=== PATIENT | male | born 1980 | race Caucasian/White ===

== ENCOUNTER 2017-08-22 10:59 | Emergency (ER) | payer BC ==
[~2017-08-22] VITALS: Ht 175.3 cm; Wt 96.3 kg
[2017-08-22 11:34] LABS: HEMATOCRIT 44.4 % (38.0-50.0); MCH 28.2 PG (29.0-34.0); MCHC 33.8 G/DL (30.0-36.0); MCV 83.6 FL (86-99); MEAN PLAT.VOLUME 10.3 uM^3 (9.0-12.4); PLATELET COUNT 289 K/uL (156-360); RBC DIS.WIDTH-CV 12.4 % (11.8-14.6); RBC DIS.WIDTH-SD 37.7 % (39-53); RED BLOOD COUNT 5.31 M/uL (4.00-5.50); WHITE BLOOD COUNT 11.6 K/uL (4.1-10.2)
[2017-08-22 11:42] LABS: ADD MIUA? YES; BILIRUBIN NEGATIVE; BLOOD MODERATE; COLOR YELLOW ((YELLOW)); GLUCOSE (STRIP) NEGATIVE; KETONES 5; LEUKOCYTES NEGATIVE; NITRITE NEGATIVE; PROTEIN (STRIP) 30; SPECIFIC GRAVITY 1.024 (1.000-1.030)
[2017-08-22 11:43] LABS: CHLORIDE 107 mEq/L (99-109); SODIUM 140 mEq/L (136-147)
[2017-08-22 11:45] LABS: GLUCOSE 123 mg/dL (70-99)
[2017-08-22 11:46] LABS: ANION GAP 12 MEQ/L (2-14)
[2017-08-22 11:49] LABS: UREA NITROGEN (BUN) 12 mg/dL (9-23)
[2017-08-22 11:51] LABS: GFR ESTIMATE (CALCULATED) > 59 mL/min/
[2017-08-22 11:57] LABS: BACTERIA NONE SEEN /HPF; EPITHELIAL CELLS NONE SEEN /HPF; MUCUS 1+ /LPF; RED BLOOD CELLS 30-40 /HPF (0-5); UCUL ADDED? NO; WHITE BLOOD CELLS 0-5 /HPF (0-5)
[2017-08-22] MEDS ORDERED: FLOMAX0.4 MG PO (13:48)
[2017-08-22] MEDS ORDERED: PERCOCET 5/31 TABLET PO (13:48)
[2017-08-22] MEDS ORDERED: ZOFRAN ODT4 MG PO (13:48)
[2017-08-22] MEDS ORDERED: MOTRIN800 MG PO (13:48)
[2017-08-22 14:11] VITALS: BP 154/110
== END 2017-08-22 14:10 | disposition home or self-care (01) ==
LOC: EME 10:59
DX: N20.2 Calculus of kidney with calculus of ureter (principal); N28.1 Cyst of kidney, acquired
CPT/HCPCS: 74176; 80048; 81003; 85027; 99281; 99284; J1885